=== PATIENT | female | born 1955 | race Caucasian/White ===

== ENCOUNTER 2019-04-19 09:57 | Inpatient (IN) ==
--- NOTE | 2019-04-19 10:34 | Diag Imaging Result Doc PS360 ---
EXAM: CT HEAD W/O CONTRAST 04/19/2019 HISTORY: Stroke-like TECHNIQUE: This exam was performed using automated exposure control, adjustment of mA or kV according to patient size, and/or use of iterative reconstruction technique. COMMENT: There is no evidence of mass effect, bleed, or abnormal extra-axial fluid collection. Compared to 03/29/2017 there has been no significant change in the appearance of the brain. There is fluid in the right maxillary sinus which was not present previously. The calvarium is intact. IMPRESSION: Right maxillary sinusitis. No evidence of acute intracranial disease. Electronically signed by Jorge L Craig 04/19/2019 10:31 AM
[2019-04-19] MEDS ORDERED: NS 1,000 ML IV ONE (10:56)
[2019-04-19] MEDS ORDERED: APRESOLINE IV ONE ×2 (10:56→11:35)
[2019-04-19] MEDS ORDERED: ASPIRIN PO ONE (11:02)
--- NOTE | 2019-04-19 11:04 | EKG Report ---
Test Performed on : 04/19/2019 10:56:21 AM Test Reason : STROKE LIKE Blood Pressure : / mmHG Vent. Rate : 062 BPM Atrial Rate : 062 BPM P-R Int : 142 ms QRS Dur : 084 ms QT Int : 418 ms P-R-T Axes : 078 047 062 degrees QTc Int : 424 ms Normal sinus rhythm. Normal ECG When compared with ECG of 29-MAR-2017 10:31, No significant change was found Unconfirmed Result
[2019-04-19 11:10] LABS: BASO# 0.04 X1000 (0.0-0.2); BASO% 0.7 % (0.0-0.8); EOS# 0.09 X1000 (0.0-0.7); EOS% 1.6 % (0.0-10.0); HEMATOCRIT 45.1 % (37.0-47.0); HEMOGLOBIN 15.7 g/dL (12.0-16.0); LYMPH# 1.84 X1000 (1.2-3.4); LYMPH% 33.5 % (20.5-51.1); MCH 33.9 PG (27-31); MCHC 34.8 g/dL (33-37); MCV 97.4 FL (81-99); MONO# 0.37 X1000 (0.11-0.59); MONO% 6.7 % (1.7-9.3); MPV 9.7 FL (7.4-10.4); NEUT# 3.16 X1000 (1.4-6.5); NEUT% 57.5 % (42.2-75.2); PLT 249 X1000 (130-400); RBC 4.63 XMIL (4.2-5.4); RDW 12.4 % (11.5-14.5)
--- NOTE | 2019-04-19 11:24 | Diag Imaging Result Doc PS360 ---
CHEST-PORTABLE - 04/19/2019 INDICATION: CVA COMPARISON: 03/29/2017 FINDINGS: The lungs are normally expanded and clear. Heart size and mediastinal contours are normal. No pneumothorax or pleural effusion. IMPRESSION: Negative exam. Electronically signed by Cesar Lisa 04/19/2019 11:21 AM
[2019-04-19 11:34] LABS: AGAP 12; BUN 12 mg/dL (8-22); CALCIUM 8.8 mg/dL (8.8-10.2); CHLORIDE 101 mmol/L (98-107); COSMO 275; CREATININE 0.7 mg/dL (0.5-0.9); ESTIMATED GFR > 60; GLUCOSE 133 mg/dL (70-104); POTASSIUM 4.1 mmol/L (3.5-5.1); SODIUM 137 mmol/L (136-145); TCO2 24 mmol/L (25-35)
[2019-04-19] MEDS ORDERED: NITROGLYCERIN SL ONE (11:49)
[2019-04-19] MEDS ORDERED: NITROGLYCERIN TOP ONE (11:49)
[2019-04-19 12:01] LABS: URINE SOURCE CLEAN CATCH
[2019-04-19 12:05] LABS: UR EPITHELIAL CELLS <10 /HPF (<10); URINE BACTERIA 1+ /HPF; URINE RBC <10 /HPF (<10); URINE WBC <10 /HPF (<10)
[2019-04-19 12:06] LABS: BILIRUBIN URINE NEGATIVE (NEGATIVE); BLOOD URINE NEGATIVE (NEGATIVE); COLOR STRAW; GLUCOSE URINE NEGATIVE (NEGATIVE); KETONE URINE NEGATIVE (NEGATIVE); LEUKOCYTES URINE NEGATIVE (NEGATIVE); NITRITE URINE NEGATIVE (NEGATIVE); PROTEIN URINE NEGATIVE (NEGATIVE); SP GRAVITY URINE 1.006; TURBIDITY URINE CLEAR (CLEAR); UROBILINOGEN URINE NORMAL (NORMAL)
--- NOTE | 2019-04-19 12:29 | PROVIDER DOCUMENTATION ---
This chart was entered by Beth Mendez Scribe, acting as scribe for Vitaly Doe MD. HPI-Neurological Disorder - General Chief Complaint: Stroke-Like Symptoms Stated Complaint: HIGH BP Time Seen by Provider: 04/19/19 10:51 Source: patient, family Allergies/Adverse Reactions: Patient Allergies Allergy/AdvReac Type Severity Reaction Status Date / Time No Known Allergies Allergy Verified 03/29/17 10:30 Home Medications: Home Medication List Medication Instructions Recorded Confirmed Last Taken Type LISINOpril [Prinivil] 10 mg PO DAILY #90 tablet 03/29/17 Unknown Rx Ranitidine HCl [Zantac 75] 75 mg PO HS 03/29/17 03/29/17 03/28/17 20:00 History - History of Present Illness-Neuro Nature of Presenting Problem: Patient is a 63 year old female who presents with stroke like symptoms. Family states patient had left side facial droop, abnormal speech, and weakness to left arm and left leg this morning. Family states they are unsure when symptoms started but states symptoms have improved. Patient denies history of CVA. Severity: reports: mild Onset/Duration: reports: unsure Timing: reports: improving Context: reports: impaired speech, facial droop (left), other (LUE and LLE weakness) Character of Altered Mental Status: reports: N/A Character of Deficits: reports: new weakness, impaired speech New weakness or altered sensation location:: reports: LUE, LLE, left facial Associated Symptoms: reports: denies symptoms Similar Symptoms Previously?: No Recently seen or treated by another doctor?: No Review of Systems - Adult - REVIEW OF SYSTEMS - ADULT ROS:: ROS per family Constitutional: reports: no symptoms reported. denies: chills, fever, fatique Eyes: reports: no symptoms reported Ears, Nose, Mouth & Throat: reports: no symptoms reported Cardiovascular: reports: no symptoms reported Respiratory: reports: no symptoms reported Gastrointestinal: reports: no symptoms reported Genitourinary: reports: no symptoms reported Musculoskeletal: reports: no symptoms reported Integumentary: reports: no symptoms reported Neurological: reports: see HPI, slurred speech, other (left side facial droop. weakness to LUE and LLE). denies: dizziness/vertigo, headache/migraines, numbness, paresthesia Psychiatric: reports: no symptoms reported Endocrine: reports: no symptoms reported Hematologic/Lymphatic: reports: no symptoms reported Allergic/Immunologic: reports: no symptoms reported All Other Systems: Reviewed and Negative Past History - Adult - PAST MEDICAL HISTORY-ADULT Review of Records: reports: Old Records Reviewed, Social history reviewed & non- contributory. Major Childhood Illnesses: reports: denies history Cardiovascular: reports: HTN, other (CMG) Respiratory: reports: other (Sarcoidosis) Gastrointestinal: reports: GERD Obstetrical/Gynecological: reports: denies history Genitourinary: reports: denies history Musculoskeletal: reports: denies history Neurological: reports: denies history Psychiatric: reports: denies history Endocrine/Immune: reports: denies history Other Conditions: reports: denies history - PRIOR SURGERIES/PROCEDURES Surgical/Procedure History: reports: reviewed, not pertinent, other (lung biopsy) - IMMUNIZATION STATUS Childhood Immunizations: See Nurse Assessment Flu Vaccine: See Nurse Assessment - FAMILY HISTORY Family History: reviewed, not pertinent - SOCIAL HISTORY Smoking: cigarettes, less than 1 pack/day Provider spent 3-5 mins advising pt. on dangers of tobacco.: Discussed manners to quit use, and f/u contacts for add'l counseling. Substance Use: denies Physical Exam- Neurological - Physical Exam-Neuro Initial Vital Signs Reviewed: Yes General Appearance: alert, no apparent distress. negative: lethargic Eye Exam: bilateral eye: normal inspection, PERRL, EOMI HENMT: normocephalic/atraumatic, moist mucous membranes. negative: angioedema Head Injury: no evidence of injury. negative: active bleeding, lacerations Respiratory: chest non-tender, lungs clear, normal breath sounds. negative: crackles, stridor Cardiovascular: normal peripheral pulses, regular rate, rhythm. negative: tachycardia Abdominal Exam: normal bowel sounds, non tender, soft. negative: rigid Extremity: non-tender, normal inspection. negative: deformity sensory scientist Exam: normal hearing, PERRL, abnormal speech (slurred), facial droop (left) Motor/Sensory: no motor deficit, no sensory deficit, no pronator drift Neurologic: facial droop (left), other (slurred speech). negative: motor weakness, sensory deficit Integumentary: normal color, normal turgor, warm/dry. negative: cyanosis, ecchymosis, jaundice Psych/Mental Status: normal mood/affect, oriented x 3. negative: anxious - Glascow Coma Scale Best Eye Response: (4) open spontaneously Best Verbal Response: (5) oriented Best Motor Response: (6) obeys commands Total Glascow Score: 15 Progress - PLAN OF CARE/RESULTS Progress/Plan/Lab Results: Vital Signs - 8 hr 04/19/19 10:00 04/19/19 10:28 04/19/19 11:00 Temperature 97.3 F L Pulse Rate 72 101 H 63 Respiratory Rate 20 19 21 Blood Pressure 182/98 161/137 199/95 O2 Sat by Pulse Oximetry 99 100 99 04/19/19 11:30 Temperature Pulse Rate 73 Respiratory Rate 19 Blood Pressure 209/108 O2 Sat by Pulse Oximetry 99 Laboratory Results - last 24 hr 04/19/19 04/19/19 04/19/19 10:40 10:40 10:40 WBC 5.50 RBC 4.63 Hgb 15.7 Hct 45.1 MCV 97.4 MCH 33.9 H MCHC 34.8 RDW Std Deviation 12.4 Plt Count 249 MPV 9.7 Immature Gran % (Auto) 0.0 Neut % (Auto) 57.5 Lymph % (Auto) 33.5 Potter % (Auto) 6.7 Eos % (Auto) 1.6 Baso % (Auto) 0.7 Immature Gran # (Auto) 0.00 Neut # (Auto) 3.16 Lymph # (Auto) 1.84 Potter # (Auto) 0.37 Eos # (Auto) 0.09 Baso # (Auto) 0.04 Sodium 137 Potassium 4.1 Chloride 101 Carbon Dioxide 24 L Anion Gap 12 BUN 12 Creatinine 0.7 Estimated GFR/1.73 m2 > 60 BUN/Creatinine Ratio 17 Glucose 133 H Calculated Osmolality 275 Calcium 8.8 Magnesium 1.8 Troponin T Urine Source Urine Color Urine Turbidity Urine pH Ur Specific [place] Urine Protein Ur Glucose (Stick) Ur Ketones (Stick) Urine Blood Urine Nitrite Urine Bilirubin Urobilinogen Dipstick Urine Leukocytes Urine WBC (Auto) Urine RBC (Auto) U Epithel Cells (Auto) Urine Bacteria (Auto) 04/19/19 04/19/19 10:40 11:56 WBC RBC Hgb Hct MCV MCH MCHC RDW Std Deviation Plt Count MPV Immature Gran % (Auto) Neut % (Auto) Lymph % (Auto) Potter % (Auto) Eos % (Auto) Baso % (Auto) Immature Gran # (Auto) Neut # (Auto) Lymph # (Auto) Potter # (Auto) Eos # (Auto) Baso # (Auto) Sodium Potassium Chloride Carbon Dioxide Anion Gap BUN Creatinine Estimated GFR/1.73 m2 BUN/Creatinine Ratio Glucose Calculated Osmolality Calcium Magnesium Troponin T < 0.010 Urine Source CLEAN CATCH Urine Color STRAW Urine Turbidity CLEAR Urine pH 7.0 Ur Specific [place] 1.006 Urine Protein NEGATIVE Ur Glucose (Stick) NEGATIVE Ur Ketones (Stick) NEGATIVE Urine Blood NEGATIVE Urine Nitrite NEGATIVE Urine Bilirubin NEGATIVE Urobilinogen Dipstick NORMAL Urine Leukocytes NEGATIVE Urine WBC (Auto) <10 Urine RBC (Auto) <10 U Epithel Cells (Auto) <10 Urine Bacteria (Auto) 1+ Orders Category Date Time Status Saline Loc NOW Care 04/19/19 10:57 Active CHEST-PORTABLE [RAD] Stat Exams 04/19/19 10:[address] HEAD W/O CONTRAST [CT] Stat Exams 04/19/19 10:14 Completed BASIC METABOLIC PANEL [CHEM] Stat Lab 04/19/19 10:40 Completed CBC WITH ELECTRONIC DIFF [HEME] Stat Lab 04/19/19 10:40 Completed LACTATE, PLASMA [CHEM] Stat Lab 04/19/19 11:32 Received MAGNESIUM [CHEM] Stat Lab 04/19/19 10:40 Completed TROPONIN T Stat Lab 04/19/19 10:40 Completed URINALYSIS W/POSS RFLX CULT [URINALYSIS] Stat Lab 04/19/19 11:56 Completed 0.9% Sodium Chloride Inj [Ns] 1,000 ml Med 04/19/19 10:56 Discontinued IV 999 mls/hr Aspirin Med 04/19/19 11:02 Discontinued 325 mg PO NOW ONE Hydralazine [Apresoline] Med 04/19/19 10:56 Discontinued 10 mg IV NOW ONE Hydralazine [Apresoline] Med 04/19/19 11:35 Discontinued 10 mg IV NOW ONE Nitroglycerin Med 04/19/19 11:49 Discontinued 1 inch TOP NOW ONE Nitroglycerin Sl [Nitroglycerin] Med 04/19/19 11:49 Discontinued 0.4 mg SL NOW ONE EKG [EKG] Stat Ther 04/19/19 10:57 Draft Result Diagrams: 04/19/19 10:40 04/19/19 10:40 - REASSESSMENT Reassessment #1 Time Reassessed: 11:24 Status: unchanged (patient still has left side facial droop but does have strength in the left arm and left leg.) - EKG 1 Time of EKG reading by physician:: 10:56 EKG Read and Signed by:: Vitaly Doe EKG Interpretation (*Must complete 3 of following elements*): Normal Rate: 62 Rhythm: normal sinus rhythm Leslie: normal QRS: normal MN Interval: normal ST Wave: normal Comments: normal ECG - XRAY 1 XRAY Study: Chest Impression: See EMR Report ( Signed CHEST-PORTABLE - 04/19/2019 INDICATION: CVA COMPARISON: 03/29/2017 FINDINGS: The lungs are normally expanded and clear. Heart size and mediastinal contours are normal. No pneumothorax or pleural effusion. IMPRESSION: Negative exam. Electronically signed by Cesar Lisa 04/19/2019 11:21 AM 04/19/19 1121 Interpreting Physician: Cesar Lisa MD Dictated Date/Time: 04/19/19 1121 cc: Vitaly Doe MD; None,PCP) - CT/MRI 1 CT Study: Head Impression: See EMR Report (EXAM: CT HEAD W/O CONTRAST 04/19/2019 HISTORY: Stroke-like TECHNIQUE: This exam was performed using automated exposure control, adjustment of mA or kV according to patient size, and/or use of iterative reconstruction technique. COMMENT: There is no evidence of mass effect, bleed, or abnormal extra-axial fluid collection. Compared to 03/29/2017 there has been no significant change in the appearance of the brain. There is fluid in the right maxillary sinus which was not present previously. The calvarium is intact. IMPRESSION: Right maxillary sinusitis. No evidence of acute intracranial disease. Electronically signed by Jorge L Craig 04/19/2019 10:31 AM 04/19/19 1031 Interpreting Physician: Jorge L Craig MD Dictated Date/Time: 04/19/19 1028 cc: Vitaly Doe MD; None,PCP) - CONSULTS/PCP/HOSPITALIST Notification #1 *Consult/PCP/Hospitalist*: ZINA Koch for Hospitalist Time Discussed: 11:13 (Dr. Serrato accepted admit ) Reason/Comments: Dr. Doe consulted with Zee about patient. Consult Disposition: Admit Departure - Departure Date of Disposition Decision: 04/19/19 Time of Disposition Decision: 11:21 DIAGNOSIS: CVA (cerebral vascular accident), Hypertension Disposition: ADMITTED INPATIENT 09 Certified Medical Emergency: Emergent Condition: Fair Referrals and Follow-Ups: None,PCP [Primary Care Provider] - - Critical Care Note This patient required my direct & personal management of CC.: Yes Total Time (mins): 36 ( ) Critical Care Statement: This patient required my direct personal management to treat or rule out processes, the absence of which, could potentiallly result in sudden, clinically significant life or limb threatening deterioration. Attestation - Physician/ AYDEN Attestation The physician spent face to face time with patient:: Yes Advanced Practice Provider documentation review:: Supervising physician onsite and consulted in the evaluation and care of this patient. The physician did have a face to face encounter with the patient. - NIH Stroke Scale NIH Type: Initial Evaluation Level of Consciousness: 0-Alert LOC Questions (ask month and age): 0-Answers Both Correctly LOC Commands (ask to open & close eyes;make a fist, let go): 0-Obeys Both Correctly Best Gaze (horizontal eye movement): 0-Normal Visual (use finger movement, counting or visual threat): 0-No Visual Loss Facial Palsy (show teeth or raise eyebrows & close eyes tght: 1-Minor Paralysis Motor Function-left arm: 0-Normal Motor Function-right arm: 0-Normal Motor Function-left le-Normal Motor Function-right le-Normal Limb Ataxia(pandsb-ydib-adwqwy, or heel to araya): 0-No Ataxia Sensory(pin prick to face,arms,trunk,legs-compare side/side): 0-No Ataxia Best Language(name item/read sentence.Ex-Down to Earth): 0-No Aphasia Dysarthria(Pt read words or say words Ex.Mama,Tip-Top,Thanks: 1-Mild-Mod Slurring Words NIH Total Score: 2 Stroke tPA Guidelines - Consultation tPA risks/benefits explained to:: family Reason not a candidate:: LEFT ARM AND LEG WEAKNESSES HAVE IMPROVED. This chart was documented by the indicated scribe, (Beth Mendez Scribe) and accurately reflects the services I performed and decisions made by me, Vitaly Doe MD, as attested by the provider's signature.
[2019-04-19] MEDS ORDERED: APRESOLINE IV PRN (13:28)
--- NOTE | 2019-04-19 16:12 | Diag Imaging Result Doc PS360 ---
EXAM: MRI BRAIN W/WO CONTRAST HISTORY: CVA TECHNIQUE: EXAM: MRI BRAIN W/WO CONTRAST HISTORY: CVA TECHNIQUE: Multisequence, multiplanar images of the brain were obtained with and without contrast as per standard protocol. COMPARISON: CT brain on 04/19/2019. FINDINGS: There are no extra-axial collections. Diffusion images show evidence for acute infarct involving the head and body of the right caudate nucleus, right putamen, anterior limb of the internal capsule and, globus pallidus.. There is no evidence for hemorrhage. There is no hydrocephalus. No midline shift or mass effect. There are scattered T2 areas of deep white matter T2 hyperintensity nonspecific in appearance but likely related to microvascular disease. There is moderate cerebral atrophy. There are no abnormal regions of contrast enhancement. IMPRESSION: Restricted diffusion right basal ganglia as described above consistent with acute right basal ganglia infarct. Electronically signed by Becky Blanco 04/19/2019 4:09 PM
[2019-04-19 16:51] LABS: BASO# 0.05 X1000 (0.0-0.2); BASO% 0.7 % (0.0-0.8); EOS# 0.09 X1000 (0.0-0.7); EOS% 1.3 % (0.0-10.0); HEMATOCRIT 44.2 % (37.0-47.0); HEMOGLOBIN 15.4 g/dL (12.0-16.0); IMM GRAN# 0.04 X1000 (0.0-0.04); IMM GRAN% 0.6 % (0.0-0.5); LYMPH# 1.63 X1000 (1.2-3.4); LYMPH% 24.2 % (20.5-51.1); MCHC 34.8 g/dL (33-37); MCV 97.6 FL (81-99); MONO# 0.49 X1000 (0.11-0.59); MONO% 7.3 % (1.7-9.3); MPV 9.7 FL (7.4-10.4); NEUT# 4.43 X1000 (1.4-6.5); NEUT% 65.9 % (42.2-75.2); PLT 249 X1000 (130-400); RBC 4.53 XMIL (4.2-5.4); RDW 12.5 % (11.5-14.5); WBC 6.73 X1000 (4.8-10.8)
[2019-04-19 17:12] LABS: AGAP 16; ALB/GLOB RATIO 1.2; ALBUMIN 3.6 g/dL (3.5-5.0); ALKALINE PHOSPHATASE 95 U/L (32-104); BUN 10 mg/dL (8-22); CALCIUM 8.7 mg/dL (8.8-10.2); CHLORIDE 105 mmol/L (98-107); COSMO 281; CREATININE 0.8 mg/dL (0.5-0.9); ESTIMATED GFR > 60; GLUCOSE 172 mg/dL (70-104); GOT 16 U/L (10-30); GPT 10 U/L (10-36); POTASSIUM 3.7 mmol/L (3.5-5.1); SODIUM 139 mmol/L (136-145); TCO2 18 mmol/L (25-35); TOTAL BILIRUBIN 0.38 mg/dL (0.20-1.00); TOTAL PROTEIN 6.7 g/dL (6.3-8.3)
[2019-04-19] MEDS ORDERED: ROCEPHIN 1 GM in NS 50 ML IV SCH (18:15)
[2019-04-19] MEDS: LIPITOR PO SCH (21:06)
--- NOTE | 2019-04-19 21:09 | Diag Imaging Result Doc PS360 ---
EXAM: CT ANGIOGRAM HEAD 04/19/2019 HISTORY: CVA TECHNIQUE: This exam was performed using automated exposure control, adjustment of mA or kV according to patient size, and/or use of iterative reconstruction technique. COMMENT: 3-D MIPS were performed. Both internal carotid and vertebral arteries are patent in the upper cervical region and into the intracranial space. There are atherosclerotic calcifications in both internal carotid arteries. Both posterior and anterior cerebral arteries are patent. The posterior communicating arteries are not well demonstrated. The middle cerebral arteries are patent bilaterally. There is apparent decreased perfusion in the caudate nucleus and globus pallidus and putamen on the right which is consistent with the appearance on MRI at 1529. There is an air-fluid level in the right maxillary sinus. The paranasal sinuses are otherwise clear. There is no evidence of mass effect or abnormal extra-axial fluid collection. IMPRESSION: Decreased perfusion in the right basal ganglia consistent with ischemic change. Electronically signed by Jorge L Craig 04/19/2019 9:06 PM
[2019-04-19] MEDS ORDERED: ZOFRAN IV PRN (21:20)
[2019-04-19] MEDS ORDERED: TYLENOL PO PRN (21:20)
--- NOTE | 2019-04-19 21:51 | HISTORY AND PHYSICAL ---
CHIEF COMPLAINT: Left-sided facial droop and left-sided weakness. HISTORY OF PRESENT ILLNESS: This is a 63-year-old female with a history of hypertension, gastroesophageal reflux disease and sarcoidosis. She presents to the emergency room after being told by a friend that she had a facial droop and an abnormal gait. The patient's family member at the bedside during my exam and reportedly symptoms were noticed between 8 and 8:30 this morning by her friend. Family member stated that the friend described the patient having a facial droop at the left corner of her mouth as well as an abnormal gait with weakness to the left arm and left leg. The patient stated that she was unaware of any weakness, abnormal gait our any symptoms. She denied any difficulty swallowing, speaking. CT scan revealed right maxillary sinusitis with no evidence of acute intracranial disease. The patient's blood pressure was 182/98 on arrival to the emergency room, increasing to 161/137 shortly after arrival. She was given an inch of nitroglycerin ointment, a sublingual nitroglycerin, as well as 20 mg total of hydralazine and blood pressures have ranged in the 160s to 215 over 80s to 1 teens. PAST MEDICAL HISTORY: Hypertension, gastroesophageal reflux disease, sarcoidosis. PAST SURGICAL HISTORY: Lung biopsy. SOCIAL HISTORY: She smokes a pack a day. She denies alcohol or illicit drug use. ALLERGIES: No known drug allergies. HOME MEDICATIONS: None. The patient states she stopped taking her medications. REVIEW OF SYSTEMS: Discussed with the patient with pertinent positives stated in HPI. She denied any syncope, dizziness, any chest pain, palpitations, any difficulty swallowing, change in vision, any shortness of breath, cough, fever, chills, any nausea, vomiting, diarrhea, constipation, black or bloody vomitus or stools, any hematuria, dysuria, frequency or urgency. PHYSICAL EXAMINATION: GENERAL: This is a 63-year-old female who is lying on the bed in no distress. VITAL SIGNS: Blood pressure is 140/85 with a heart rate of 77, respirations 20, temperature is 98.1 degrees with room air sats 99%. EYES: Pupils are equal, round, react to light. EOMs are intact. Sclerae are anicteric. HEENT: Head is normocephalic, atraumatic. Mucous membranes are moist. NECK: Supple with trachea midline. CARDIOVASCULAR: Regular rate and rhythm. S1 and S2 appreciated. EXTREMITIES: She has no lower extremity edema. Calves are nontender bilateral with peripheral pulses palpable x4 extremities. PULMONARY: Breath sounds are clear. No increased work of breathing noted. Chest rises and falls symmetric with respiration. GASTROINTESTINAL: Abdomen is soft, nontender, nondistended. Bowel sounds in all 4 quadrants. SKIN: Warm and dry. NEUROLOGIC: Forehead is spared. She has equal nasal flaring. She has left facial droop. No tongue or uvula deviation. Speech is clear. She has equal shoulder shrug. She has no plantar drift. Muscle strength is 5/5 to right arm and right leg, 2/5 to left arm and left leg. She has a regwro-en-xrtx is 3/3 to her right arm and 3/3 left although movement is slow. Heel, knee to araya is 3/3 on the right. The left she did 3/3; although, movement was slow. LABS: WBC is 5.5 with hemoglobin 15.7, hematocrit 45.1 and platelets of 249,000. Sodium 137, potassium 4.1, BUN 12, creatinine 0.7, glucose of 133, magnesium is 1.8. CT of the head reveals right maxillary sinusitis with no evidence of acute intracranial disease. Chest x-ray was a negative exam. ASSESSMENT AND PLAN: 1. Cerebrovascular accident with left-sided weakness. 2. Hypertension with medical noncompliance. 3. Maxillary sinusitis. Rocephin. Llipid profile. Consult physical therapy as well as occupational therapy. Neuro checks per stroke protocol. aspirin daily. Lipitor 40 mg p.o. at bedtime. Allow for permissive hypertension, giving hydralazine 10 mg IV q.4 hours for systolic blood pressure greater than 180. CBC, CMP in the morning. Plan discussed with Dr Cabrera. Further treatments pending hospital course. Dictated by ZINA Dominguez for Luciano Cabrera MD cc: ZINA Dominguez MD [facility]
[2019-04-20] MEDS: NS 1,000 ML IV SCH ×4 (02:12→20:16)
--- NOTE | 2019-04-20 04:40 | ECHO REPORT ---
ORDER DATE: 04/19/2019 INDICATION: CVA. FINDINGS: 1. Right atrium appears normal in size at 2.4 cm. 2. Mild tricuspid regurgitation. 3. Normal right ventricle size and systolic function. 4. No significant pulmonic insufficiency. 5. Normal left atrial size. 6. No mitral prolapse. Mild mitral regurgitation. 7. Normal left atrial size at 3.5 cm. 8. Normal left ventricle size with an end-diastolic dimension of 4.3 cm. Normal wall thicknesses. The septal wall thickness is 1.0. Normal to hyperdynamic left ventricle systolic function. The estimated ejection fraction is 65 to 70 percent with normal wall motion. 9. Aortic valve opens well. No stenosis or insufficiency. 10. Aorta appears normal in visualized segments. 11. No pericardial effusion is identified. cc: MD Brenda Costello CRNP
[2019-04-20] MEDS: LOVENOX SUBQ SCH (05:28)
[2019-04-20 08:08] LABS: BASO# 0.04 X1000 (0.0-0.2); BASO% 0.9 % (0.0-0.8); EOS# 0.13 X1000 (0.0-0.7); EOS% 2.9 % (0.0-10.0); HEMATOCRIT 42.9 % (37.0-47.0); HEMOGLOBIN 14.8 g/dL (12.0-16.0); LYMPH# 1.58 X1000 (1.2-3.4); LYMPH% 35.4 % (20.5-51.1); MCH 33.7 PG (27-31); MCHC 34.5 g/dL (33-37); MCV 97.7 FL (81-99); MONO# 0.44 X1000 (0.11-0.59); MONO% 9.9 % (1.7-9.3); MPV 9.8 FL (7.4-10.4); NEUT# 2.27 X1000 (1.4-6.5); NEUT% 50.9 % (42.2-75.2); PLT 241 X1000 (130-400); RBC 4.39 XMIL (4.2-5.4); RDW 12.6 % (11.5-14.5); WBC 4.46 X1000 (4.8-10.8)
[2019-04-20 08:27] LABS: AGAP 10; BUN 10 mg/dL (8-22); CALCIUM 8.7 mg/dL (8.8-10.2); CHLORIDE 105 mmol/L (98-107); CHOLESTEROL 228 mg/dL (0-200); COSMO 274; CREATININE 0.6 mg/dL (0.5-0.9); ESTIMATED GFR > 60; GLUCOSE 92 mg/dL (70-104); HDL 65 mg/dL (45-65); LDL 141 mg/dL; POTASSIUM 3.8 mmol/L (3.5-5.1); SODIUM 138 mmol/L (136-145); TCO2 23 mmol/L (25-35); TRIGLYCERIDES 109 mg/dL (35-135); VLDL 22 mg/dL
[2019-04-20] MEDS ORDERED: ASPIRIN EC PO SCH (09:00)
[2019-04-20] MEDS: ASPIRIN EC PO SCH (09:03)
--- NOTE | 2019-04-20 14:09 | PROGRESS NOTE ---
DATE: 04/20/2019 She came with left-sided facial droop, left-sided weakness. 63-year-old with history of hypertension, gastroesophageal reflux, history of sarcoidosis, who presented to the emergency room after being told by a friend the left side of her mouth had drooped down, had a little abnormal gait. She did not feel like she had any weakness or any facial droop. The family was at the bedside, noticed that symptoms were noticed about 8 or 8:30 in the morning by a friend. Family member described patient having facial droop in the left corner of her mouth as well as abnormal gait, weakness in the left arm, left leg, so concerned about a CVA. She had a head CT without contrast. Right maxillary sinusitis, no evidence of acute intracranial disease. She had a chest x-ray which was negative. Echocardiogram done yesterday, no mural thrombus. Normal left ventricular size. Ejection fraction 65 to 70 percent. Did not see any significant valvular abnormality. She had a brain MRI and it showed restricted diffusion in the right basal ganglia consistent with acute right basal ganglia infarct and then she had decreased perfusion in the right basal ganglia consistent with ischemic change. PHYSICAL EXAMINATION: On exam today, no facial drooping. I do not appreciate any true weakness today on shoulder shrug. Her left arm, hand, left leg both appear symmetrical, 4+ out of 5 on both sides. Her speech, she does not feel she is having any speech problems. No trouble forming words. No trouble with swallow. Temp is 99.1 degrees, pulse 70, respirations 16, blood pressure 142/73. Pupils are equal, round. Lungs are clear in all lung mahmood. Cardiovascular regular rhythm and rate without murmur or S3. No pedal edema. LABORATORY DATA: White count 4460, hematocrit 42, platelet count 241,000, sodium 138, potassium 3.8, chloride 105, BUN 10, creatinine 0.6. Her lipid profile LDL was 141, HDL is 65. Urinalysis unremarkable. ASSESSMENT AND PLAN: She had decreased perfusion in the right basal ganglia consistent with ischemic change. We are waiting on carotid studies. Echocardiogram did not show any mural thrombus. She has been on aspirin since she has been in the hospital, but did not take it before that. Blood pressures look good. She is getting Apresoline p.r.n. but they have not had to give the Apresoline. She was started on ceftriaxone. Past medical history of hypertension, gastroesophageal reflux disease, and sarcoidosis. I am going to stop the Apresoline p.r.n. I am going to keep her on aspirin 325 mg a day. She is on the Lipitor 40 mg at bedtime will have Physical therapy and speech therapy is going to evaluate if the carotid Doppler is okay. I suspect she will get to go home tomorrow. cc: Ramos Mathur MD
[2019-04-20] MEDS: LIPITOR PO SCH (20:16)
--- NOTE | 2019-04-20 21:31 | CONSULTATION ---
DATE OF CONSULTATION: 04/20/2019 Ms. Hester reports feeling well, working vigorously as usual yesterday. Onlooker reported facial asymmetry. Later, family noticed weakness in the left limbs. There was unsteady gait. There might have been transient slurred speech. There was never trouble chewing or swallowing. There was no vision disturbance. She did not have headache initially, but later had right sided headache of moderate intensity. She presented to the emergency room, was evaluated, and admitted. Today, left-sided weakness is improved. Family reports face is nearly symmetric. She never developed any further neurologic deficit. Past history is negative for stroke, seizure, serious head injury, other neurologic event. She smokes cigarettes. She takes medicine for blood pressure. She reports possibly elevated cholesterol in the past. She was taking her blood pressure medicine correctly. She was not taking a statin. She has never had diabetes mellitus. Workup here includes initial noncontrast CT of the head showing nothing remarkable. Brain MRI done with and without contrast showed restricted diffusion, consistent with acute ischemic right basal ganglia area infarction. CT angiogram showed nothing remarkable in the large vessels. Echocardiogram showed no source of embolus. Admission systolic blood pressures ranged from 180s to 200s. More recent systolic blood pressures have ranged 110s to 150s. PHYSICAL EXAMINATION: Ms. Hester is awake, alert, attentive, and appropriate. Speech is not dysarthric. Language function is intact. Memory is good. Head and neck are unremarkable. Visual mahmood are full. There is good facial motility bilaterally, but the left nasolabial fold is less prominent than the right. Gag is intact. Tongue is midline. Hearing is good. Shoulder shrug is equal. I can overcome the left iliopsoas grading 4+/5. I could not find definite weakness in the left arm. She did well on [id number] testing bilaterally. She reports symmetric pinprick and light touch appreciation over the limbs. Proprioception is normal at the left great toe MTP joint. Reflexes are 1+ at the ankles and wrists symmetrically. I did not test her gait. IMPRESSION: Acute nondominant subcortical right hemisphere lacunar infarction. She has risk factors including cigarette smoking, hypertension, probably dyslipidemia. She has had some elevated blood sugars here, but never had diagnosis of diabetes mellitus. I encouraged her to quit smoking cigarettes, to be aggressive with management of her other risk factors, and to keep followup in her primary clinic. Workup has been sufficient at this point, and I do not think we need anything urgently now from neurology standpoint. Thanks for asking Neurology to see Ms. Hester. cc: MD CAREN Rose III
[2019-04-21] MEDS: NS 1,000 ML IV SCH ×2 (02:17→05:33)
[2019-04-21] MEDS: LOVENOX SUBQ SCH (05:19)
[2019-04-21] MEDS: ASPIRIN EC PO SCH (08:55)
[2019-04-21 11:50] VITALS: BP 150/69
--- NOTE | 2019-04-21 14:49 | DISCHARGE SUMMARY ---
ADMISSION DATE: 04/19/2019 DISCHARGE DATE: 04/21/2019 DISCHARGE DIAGNOSES: 1. Acute right basal ganglia infarct. 2. Hypertension. 3. Dyslipidemia. HOSPITAL COURSE: Ms. Hester is a 63-year-old female who presented to the Emergency Room with the complaint of having abnormal gait with weakness of her left upper and left extremities. She was noted to have uncontrolled hypertension and therefore was admitted to the hospital for further care. She was diagnosed as having an acute right basal ganglia infarct and was treated with aspirin 325 mg daily. Her blood pressure was also controlled with her routine home medications which were gradually restarted. Furthermore, we checked her cholesterol levels and have initiated her on atorvastatin 40 mg orally once daily as well. Her condition has improved and she has fully regained her strength on the left side of her body. She feels better and therefore she is going to be discharged home today. I discussed with her in detail regarding lifestyle changes and the need to quit tobacco smoking as well as taking in a healthy diet. She also understands to be more compliant with her home medications. DISCHARGE MEDICATIONS: 1. Aspirin 325 mg orally once daily 2. Amlodipine 10 mg orally once daily. 3. Lisinopril 40 mg orally once a daily. 4. Atorvastatin 40 mg orally once daily at bedtime. FOLLOW UP: She will follow up with her PCP in approximately 1 week. CONDITION: Stable . DISPOSITION: Home. cc: Rafiq Person MD
--- NOTE | 2019-04-21 14:50 | PROGRESS NOTE ---
DATE: 04/21/2019 SUBJECTIVE: Ms. Hester reports no new problems. Recent blood pressures have been 170s-180s systolic and she has tolerated that. OBJECTIVE: On exam, she is awake, alert, attentive, and appropriate. Speech is not dysarthric. Visual mahmood are full. Extraocular movements are full. Upper facial motility is normal. Left nasolabial fold is flatter than the right but motility is good. Gag is intact. Tongue is midline. Palate elevates in the midline. Shoulder shrug is good bilaterally. I can overcome the left arm at the deltoid grading 4+/5. She did well on [id number] testing bilaterally. IMPRESSION: Relatively pure motor nondominant left hemiparesis with stable course. We reviewed her risk factors. I encouraged her to be aggressive with management. I do not think we need further workup from neurologic standpoint now. Thanks for asking Neurology to see Ms. Hester. cc: Jordan Ureña III, MD
--- NOTE | 2019-04-21 15:36 | Carotid Study ---
DATE: 04/19/2019 COMPUTER REPAIR TECHNICIAN: Miki REQUESTING PROVIDER: Jolynn. INDICATION: CVA. FINDINGS: Bilateral carotid artery duplex system was visualized. In the right there is a very mild focal plaque in the carotid bulb that does not cause elevation in velocities. In the left there is some atherosclerotic changes noted in the distal common carotid artery and more broad- based plaque noted in the bulb. However neither of these cause significant elevation of velocities or limitation in flow. The vertebral arteries are antegrade bilaterally. SUMMARY: Mild atherosclerotic changes noted bilaterally. cc: MD Brenda Levin CRNP
== END 2019-04-21 14:01 | disposition home or self-care (01) | DRG 65 ==
LOC: ED 09:57 → 1N 13:42 → SUATTDRO 13:42
PROVIDERS: ATTEND Internal Medicine